=== PATIENT | female | born 2005 | race Two or more races ===

== ENCOUNTER 2024-09-08 11:06 | Emergency (ER) | payer BC ==
[~2024-09-08] VITALS: Ht 165.1 cm; Wt 59.0 kg
[2024-09-08 11:08] VITALS: TEMP 36.8; O2SAT 98
[2024-09-08 12:13] LABS: CHLORIDE 96 mEq/L (98-107); SODIUM 136 mEq/L (136-145)
[2024-09-08 12:14] LABS: CARBON DIOXIDE 29 mEq/L (21-32)
[2024-09-08 12:19] LABS: CREATININE 0.8 mg/dL (0.6-1.0); GLUCOSE 104 mg/dL (70-105); UREA NITROGEN BLOOD 10 mg/dL (9-23)
[2024-09-08 12:20] VITALS: BP 116/76; PULSE 96; RESP 16
[2024-09-08] MEDS: FAMOTIDINE 20MG/2ML VIAL IV ONE (12:20)
[2024-09-08] MEDS: SODIUM CHLORIDE 0.9% 1,000 ML IV ONE (12:20)
[2024-09-08] MEDS: ONDANSETRON HCL 4MG/2ML INJ IV ONE (12:20)
[2024-09-08] MEDS: KETOROLAC 15MG/ML VIAL IV ONE (12:20)
[2024-09-08 12:21] LABS: ALANINE AMINOTRANSFERASE 10 IU/L (10-49); ALBUMIN 5.4 g/dL (3.2-4.8); ASPARTATE AMINOTRANSFERASE 19 IU/L (<34); BASOPHILS % 0.2 % (0.0-2.0); BILIRUBIN DIRECT 0.4 mg/dL (<=3.0); BILIRUBIN TOTAL 1.4 mg/dL (0.1-1.0); HEMATOCRIT. 46.5 % (36.0-48.0); HEMOGLOBIN. 15.7 g/dL (12.0-16.0); LYMPHOCYTES % 17.3 % (20.0-50.0); MEAN CORPUSCULAR HEMOGLOBIN 29.2 pg (28.0-32.0); MEAN CORPUSCULAR HGB CONC 33.7 g/dL (31.0-37.0); MEAN CORPUSCULAR VOLUME 86.6 fL (81.0-99.0); MEAN PLATELET VOLUME 7.1 fl (7.4-10.4); MONOCYTES % 8.4 % (2.0-8.0); NEUTROPHILS % 74.1 % (40.0-76.0); PLATELET 441 x1000/uL (130-400); PROTEIN TOTAL 8.8 g/dL (6.0-8.3); RED BLOOD CELL COUNT 5.37 mill/uL (4.2-5.4); RED CELL DISTRIBUTION WIDTH 13.2 % (11.6-14.6); WHITE BLOOD COUNT 12.9 x1000/uL (4.5-11.0)
[2024-09-08 12:41] LABS: HCG SCREEN NEGATIVE
[2024-09-08] MEDS: KCL 20MEQ/100ML PREMIX 100 ML IV NR (13:21)
[2024-09-08] MEDS: SODIUM CHL 0.9% + KCL 20MEQ/L 1,000 ML IV SCH (16:02)
== END 2024-09-08 16:45 | disposition home or self-care (01) ==
LOC: ER 11:06
DX: R11.2 Nausea with vomiting, unspecified (principal); F19.90 Other psychoactive substance use, unspecified, uncomplicated
CPT/HCPCS: 80076; 80048; 84703; 83690; 85025; 36415; 96361; 96365; 96366; 96375; 99284; J3490; J1885; J2405; J3480 ×2; J7030; Z7610 ×2